=== PATIENT | female | born 1995 | race Caucasian/White ===

== ENCOUNTER 2019-04-21 17:11 | Inpatient (IN) | payer MEDICAID ==
[2019-04-21] MEDS ORDERED: ACETAMINOPHEN 325 MG TAB PO (23:30)
[2019-04-22 01:33] LABS: AMPHETAMINE/METHAMPHETAMINE Negative (NEGATIVE); BARBITURATES Negative (NEGATIVE); BENZODIAZEPINES Negative (NEGATIVE); CANNABINOIDS Negative (NEGATIVE); COCAINE Negative (NEGATIVE); OPIATES Negative (NEGATIVE)
[2019-04-22] MEDS: BETAMET NA PHOS/AC(6 MG/ML) 2 ML INJ SYG IM (01:38)
[2019-04-22] MEDS: DOCUSATE SODIUM 100 MG CAP PO (09:05)
[2019-04-22] MEDS: PRENATAL VITAMIN PO (09:05)
[2019-04-22 13:12] LABS: ADD UMIC YES; UR ASCORBIC ACID NEGATIVE (NEGATIVE); UR BACTERIA FEW /HPF (NONE SEEN); UR BILIRUBIN (Dip) NEGATIVE (NEGATIVE); UR BLOOD (Dip) 3+ mg/dL (NEGATIVE); UR CLARITY CLOUDY (CLEAR); UR COLOR YELLOW (YELLOW); UR GLUCOSE (Dip) NEGATIVE (NEGATIVE); UR KETONES (Dip) TRACE mg/dL (NEGATIVE); UR LEUKOCYTE ESTERASE (Dip) 3+ Leu/ul (NEGATIVE); UR NITRITE (Dip) NEGATIVE (NEGATIVE); UR RBC 4 /HPF (0-5); UR SPECIFIC GRAVITY (Dip) 1.008 (1.003-1.030); UR SQUAMOUS EPITHELIAL CELL FEW /HPF (FEW); UR TOTAL PROTEIN (Dip) NEGATIVE (NEGATIVE); UR UROBILINOGEN (Dip) NEGATIVE (NEGATIVE); UR WBC 28 /HPF (0-5)
[2019-04-22] MEDS: metroNIDAZOLE 500 MG TAB PO (17:00)
[2019-04-22] MEDS: ACYCLOVIR 400 MG TAB PO ×2 (17:14→20:53)
[2019-04-22 17:31] LABS: HIV 1&2 ANTIBODY NEGATIVE (NEGATIVE)
[2019-04-23] MEDS: BETAMET NA PHOS/AC(6 MG/ML) 2 ML INJ SYG IM (01:35)
[2019-04-23] MEDS: ACYCLOVIR 400 MG TAB PO ×3 (08:48→21:05)
[2019-04-23] MEDS: DOCUSATE SODIUM 100 MG CAP PO (08:48)
[2019-04-23] MEDS: PRENATAL VITAMIN PO (08:49)
[2019-04-23 12:57] LABS: HSV 2 IGG ANTIBODY <0.90 index
[2019-04-23 23:20] LABS: ADD UMIC YES; UR ASCORBIC ACID NEGATIVE (NEGATIVE); UR BACTERIA FEW /HPF (NONE SEEN); UR BILIRUBIN (Dip) NEGATIVE (NEGATIVE); UR BLOOD (Dip) 1+ mg/dL (NEGATIVE); UR CLARITY CLOUDY (CLEAR); UR COLOR STRAW (YELLOW); UR GLUCOSE (Dip) NEGATIVE (NEGATIVE); UR KETONES (Dip) NEGATIVE (NEGATIVE); UR LEUKOCYTE ESTERASE (Dip) 3+ Leu/ul (NEGATIVE); UR NITRITE (Dip) NEGATIVE (NEGATIVE); UR RBC 8 /HPF (0-5); UR SPECIFIC GRAVITY (Dip) 1.004 (1.003-1.030); UR SQUAMOUS EPITHELIAL CELL FEW /HPF (FEW); UR TOTAL PROTEIN (Dip) NEGATIVE (NEGATIVE); UR UROBILINOGEN (Dip) NEGATIVE (NEGATIVE); UR WBC 65 /HPF (0-5)
[2019-04-24] MEDS: LACTATED RINGER'S 1,000 ML IV ×3 (04:45→23:03)
[2019-04-24] MEDS: CEFAZOLIN 2 GM/50 ML (PMX) 50 ML IVPB ×3 (05:48→18:33)
[2019-04-24] MEDS: ACYCLOVIR 400 MG TAB PO ×3 (09:20→20:58)
[2019-04-24] MEDS: DOCUSATE SODIUM 100 MG CAP PO (09:20)
[2019-04-24] MEDS: PRENATAL VITAMIN PO (09:20)
[2019-04-25] MEDS: CEFAZOLIN 2 GM/50 ML (PMX) 50 ML IVPB ×4 (00:01→18:33)
[2019-04-25] MEDS: LACTATED RINGER'S 1,000 ML IV ×3 (08:16→20:40)
[2019-04-25] MEDS: PRENATAL VITAMIN PO (09:16)
[2019-04-25] MEDS: DOCUSATE SODIUM 100 MG CAP PO (09:16)
[2019-04-25] MEDS: ACYCLOVIR 400 MG TAB PO ×3 (09:16→21:16)
[2019-04-25] MEDS ORDERED: LIDOCAINE 2% (SDV) 5 ML INJ (10:39)
[2019-04-26] MEDS: CEFAZOLIN 2 GM/50 ML (PMX) 50 ML IVPB ×4 (00:27→18:00)
[2019-04-26] MEDS: LACTATED RINGER'S 1,000 ML IV ×3 (01:56→19:59)
[2019-04-26] MEDS: ACYCLOVIR 400 MG TAB PO ×3 (08:59→20:49)
[2019-04-26] MEDS: DOCUSATE SODIUM 100 MG CAP PO (08:59)
[2019-04-26] MEDS: PRENATAL VITAMIN PO (08:59)
[2019-04-26 14:59] LABS: RUPTURE FETAL MEMBRANES NEGATIVE (NEGATIVE)
[2019-04-26] MEDS: FERROUS SULFATE (EC) 325 MG TAB PO (15:10)
[2019-04-26 15:14] LABS: HEMATOCRIT 33.4 % (37.0-47.0); HEMOGLOBIN 11.1 g/dl (12.0-16.0); MEAN CORPUSCULAR HEMOGLOBIN 30.7 pg (29.0-33.0); MEAN CORPUSCULAR HGB CONC 33.2 g/dl (32.0-37.0); MEAN CORPUSCULAR VOLUME 92.3 fl (82.0-101.0); PLATELET COUNT 173 10^3/UL (140-415); RED BLOOD COUNT 3.62 10^6/ul (4.20-5.40); RED CELL DISTRIBUTION WIDTH 12.5 % (11.5-14.5)
[2019-04-26 15:14] LABS: WHITE BLOOD COUNT 11.4 10^3/ul (4.8-10.8)
[2019-04-26 15:16] LABS: ADD MAN DIFF? YES; MEAN PLATELET VOLUME 12.1 fl (7.4-10.4); POSITIVE DIFF @See below
[2019-04-26 16:27] LABS: BASOPHIL #M 0.1 10^3/ul (0.0-0.0); BASOPHILS % (M) 1 % (0-2); GIANT THROMBO% (M) 5 % (0-0); LYMPHOCYTES #M 2.9 10^3/ul (0.8-2.9); LYMPHOCYTES % (M) 26 % (15-51); MONOCYTE #M 0.4 10^3/ul (0.3-0.9); MONOCYTES % (M) 4 % (0-11); PLATELET ESTIMATE NORMAL; POIKILOCYTOSIS 1+ (0-0); REACTIVE LYMPHOCYTES #M 0.3 10^3/ul (0.0-0.0); REACTIVE LYMPHOCYTES% (M) 3 % (0-0); SEGMENTED NEUTROPHILS (M) % 66 % (39-77); SMUDGE%M 20 % (0-0)
[2019-04-27] MEDS: CEFAZOLIN 2 GM/50 ML (PMX) 50 ML IVPB ×2 (00:15→06:11)
[2019-04-27] MEDS: LACTATED RINGER'S 1,000 ML IV (04:33)
[2019-04-27] MEDS: FERROUS SULFATE (EC) 325 MG TAB PO (10:07)
[2019-04-27] MEDS: DOCUSATE SODIUM 100 MG CAP PO (10:07)
[2019-04-27] MEDS: PRENATAL VITAMIN PO (10:07)
[2019-04-27] MEDS: ACYCLOVIR 400 MG TAB PO ×3 (10:07→21:34)
[2019-04-27] MEDS ORDERED: LACTATED RINGER'S 1,000 ML IV (10:30)
[2019-04-27 13:27] LABS: ADD UMIC NO; UR ASCORBIC ACID NEGATIVE (NEGATIVE); UR BILIRUBIN (Dip) NEGATIVE (NEGATIVE); UR BLOOD (Dip) NEGATIVE (NEGATIVE); UR CLARITY CLEAR (CLEAR); UR COLOR STRAW (YELLOW); UR GLUCOSE (Dip) NEGATIVE (NEGATIVE); UR KETONES (Dip) NEGATIVE (NEGATIVE); UR LEUKOCYTE ESTERASE (Dip) NEGATIVE Leu/ul (NEGATIVE); UR NITRITE (Dip) NEGATIVE (NEGATIVE); UR SPECIFIC GRAVITY (Dip) 1.003 (1.003-1.030); UR TOTAL PROTEIN (Dip) NEGATIVE (NEGATIVE); UR UROBILINOGEN (Dip) NEGATIVE (NEGATIVE)
[2019-04-28] MEDS: DOCUSATE SODIUM 100 MG CAP PO (08:58)
[2019-04-28] MEDS: FERROUS SULFATE (EC) 325 MG TAB PO (08:58)
[2019-04-28] MEDS: PRENATAL VITAMIN PO (08:58)
[2019-04-28] MEDS: ACYCLOVIR 400 MG TAB PO ×3 (09:00→20:47)
[2019-04-29] MEDS: FERROUS SULFATE (EC) 325 MG TAB PO (08:31)
[2019-04-29] MEDS: DOCUSATE SODIUM 100 MG CAP PO (08:31)
[2019-04-29] MEDS: ACYCLOVIR 400 MG TAB PO ×3 (08:31→22:00)
[2019-04-29] MEDS: PRENATAL VITAMIN PO (08:31)
[2019-04-29 19:24] LABS: HSV1 IgM SCREEN NEGATIVE; HSV2 IgM SCREEN NEGATIVE
[2019-04-30] MEDS: PRENATAL VITAMIN PO (07:56)
[2019-04-30] MEDS: DOCUSATE SODIUM 100 MG CAP PO (07:56)
[2019-04-30] MEDS: ACYCLOVIR 400 MG TAB PO ×3 (07:56→21:03)
[2019-04-30] MEDS: FERROUS SULFATE (EC) 325 MG TAB PO (07:56)
[2019-05-01] MEDS: DOCUSATE SODIUM 100 MG CAP PO (08:58)
[2019-05-01] MEDS: ACYCLOVIR 400 MG TAB PO ×3 (08:58→20:56)
[2019-05-01] MEDS: PRENATAL VITAMIN PO (08:58)
[2019-05-01] MEDS: FERROUS SULFATE (EC) 325 MG TAB PO (08:58)
[2019-05-02] MEDS: ACYCLOVIR 400 MG TAB PO ×3 (09:24→21:33)
[2019-05-02] MEDS: DOCUSATE SODIUM 100 MG CAP PO (09:24)
[2019-05-02] MEDS: PRENATAL VITAMIN PO (09:24)
[2019-05-02] MEDS: FERROUS SULFATE (EC) 325 MG TAB PO (09:24)
[2019-05-03] MEDS: PRENATAL VITAMIN PO (09:45)
[2019-05-03] MEDS: DOCUSATE SODIUM 100 MG CAP PO (09:45)
[2019-05-03] MEDS: FERROUS SULFATE (EC) 325 MG TAB PO (09:45)
[2019-05-03 10:46] LABS: ADD MAN DIFF? NO
[2019-05-03 10:48] LABS: WHITE BLOOD COUNT 9.9 10^3/ul (4.8-10.8)
[2019-05-03 10:48] LABS: BASOPHILS % 0.2 % (0.0-2.0); EOSINOPHILS # 0.1 10^3/ul (0.0-0.5); EOSINOPHILS % 0.5 % (0.0-7.0); HEMATOCRIT 32.3 % (37.0-47.0); HEMOGLOBIN 10.9 g/dl (12.0-16.0); LYMPHOCYTES # 2.6 10^3/ul (0.8-2.9); LYMPHOCYTES % 26.1 % (15.0-51.0); MEAN CORPUSCULAR HEMOGLOBIN 31.2 pg (29.0-33.0); MEAN CORPUSCULAR HGB CONC 33.7 g/dl (32.0-37.0); MEAN CORPUSCULAR VOLUME 92.6 fl (82.0-101.0); MEAN PLATELET VOLUME 10.8 fl (7.4-10.4); MONOCYTE # 0.6 10^3/ul (0.3-0.9); MONOCYTES % 5.8 % (0.0-11.0); NEUTROPHIL # 6.6 10^3/ul (1.6-7.5); NEUTROPHILS % 66.9 % (39.0-77.0); PLATELET COUNT 166 10^3/UL (140-415); RED BLOOD COUNT 3.49 10^6/ul (4.20-5.40); RED CELL DISTRIBUTION WIDTH 12.6 % (11.5-14.5)
[2019-05-03] MEDS: ACYCLOVIR 400 MG TAB PO (15:04)
== END 2019-05-03 19:00 | disposition home or self-care (01) | DRG 833 ==
LOC: OBT 17:11 → L-D 04-22 01:28 → PP1 04-28 14:01 → L-D 05-03 10:40 → PP1 04-28 14:29 → L-D 17:22 → PP1 04-28 15:39 → OBT 21:55 → L-D 21:55
PROVIDERS: Obstetrics & Gynecology
DX: O36.5930 Maternal care for other known or suspected poor fetal growth, third trimester, not applicable or unspecified (principal); O99.013 Anemia complicating pregnancy, third trimester; Z3A.35 35 weeks gestation of pregnancy
CPT/HCPCS: 76815; 76818; 76820; 80307; 81001; 81003; 84112; 85025; 86644; 86645; 86692; 86694; 86695; 86696; 86703; 86762; 86777; 86778; 87070; 87086; 87210; 87255; 87591

== ENCOUNTER 2019-05-06 08:54 | Inpatient (IN) | payer MEDICAID ==
[2019-05-06] MEDS ORDERED: LIDOCAINE 1% (MPF) 30 ML INJ INJ (13:00)
[2019-05-06] MEDS ORDERED: IBUPROFEN 600 MG TAB PO (13:00)
[2019-05-06] MEDS ORDERED: CARBOPROST 250 MCG INJ IM (13:00)
[2019-05-06] MEDS ORDERED: OXYTOCIN 30 UNITS/LR 500 ML IV (13:00)
[2019-05-06] MEDS ORDERED: BUTORPHANOL 2 MG INJ IV (13:00)
[2019-05-06 14:26] LABS: ADD MAN DIFF? NO
[2019-05-06 14:28] LABS: BASOPHILS % 0.2 % (0.0-2.0); EOSINOPHILS % 0.5 % (0.0-7.0); HEMATOCRIT 32.9 % (37.0-47.0); HEMOGLOBIN 10.9 g/dl (12.0-16.0); LYMPHOCYTES # 2.5 10^3/ul (0.8-2.9); LYMPHOCYTES % 30.4 % (15.0-51.0); MEAN CORPUSCULAR HEMOGLOBIN 30.7 pg (29.0-33.0); MEAN CORPUSCULAR HGB CONC 33.1 g/dl (32.0-37.0); MEAN CORPUSCULAR VOLUME 92.7 fl (82.0-101.0); MEAN PLATELET VOLUME 10.8 fl (7.4-10.4); MONOCYTE # 0.5 10^3/ul (0.3-0.9); NEUTROPHIL # 5.2 10^3/ul (1.6-7.5); NEUTROPHILS % 62.5 % (39.0-77.0); PLATELET COUNT 157 10^3/UL (140-415); RED BLOOD COUNT 3.55 10^6/ul (4.20-5.40); RED CELL DISTRIBUTION WIDTH 12.8 % (11.5-14.5)
[2019-05-06 14:28] LABS: WHITE BLOOD COUNT 8.3 10^3/ul (4.8-10.8)
[2019-05-06 14:52] LABS: INR 0.87; PROTIME 11.9 Sec (11.9-14.9); PT RATIO 0.9
[2019-05-06 14:53] LABS: PARTIAL THROMBOPLASTIN TIME 26.7 Sec (23.0-35.0)
[2019-05-06 15:15] LABS: HEPATITIS B SURFACE ANTIGEN NEGATIVE (NEGATIVE)
[2019-05-06] MEDS: LACTATED RINGER'S 1,000 ML IV ×2 (15:50→20:54)
[2019-05-06] MEDS: MISOPROSTOL 50 MCG CAPSULE PO ×2 (16:00→21:39)
[2019-05-06] MEDS ORDERED: FENTAnyl 50 MCG/ML VIAL ×2 (16:17→16:58)
[2019-05-06] MEDS ORDERED: ONDANSETRON 4 MG INJ (16:26)
[2019-05-06] MEDS ORDERED: METOCLOPRAMIDE 10 MG INJ (16:26)
[2019-05-06] MEDS ORDERED: FAMOTIDINE 20 MG INJ (16:46)
[2019-05-06] MEDS ORDERED: CEFAZOLIN 1 GM INJ (16:50)
[2019-05-06] MEDS ORDERED: SUGAMMADEX SODIUM 200 MG/2 ML VIAL IV (16:50)
[2019-05-06 21:56] LABS: RAPID PLASMA REAGIN NONREACTIVE (NR)
[2019-05-07] MEDS: MISOPROSTOL 50 MCG CAPSULE PO ×6 (05:00→17:00)
[2019-05-07] MEDS: LACTATED RINGER'S 1,000 ML IV ×3 (05:35→20:58)
[2019-05-07] MEDS: ACYCLOVIR 400 MG TAB PO ×3 (09:09→20:56)
[2019-05-08] MEDS: LACTATED RINGER'S 1,000 ML IV ×2 (08:19→16:59)
[2019-05-08] MEDS: ACYCLOVIR 400 MG TAB PO ×3 (09:04→21:29)
[2019-05-09] MEDS: MISOPROSTOL 50 MCG CAPSULE PO ×4 (01:00→21:36)
[2019-05-09] MEDS: LACTATED RINGER'S 1,000 ML IV ×3 (01:01→17:19)
[2019-05-09] MEDS: ACYCLOVIR 400 MG TAB PO ×3 (09:07→17:20)
[2019-05-10] MEDS: MISOPROSTOL 50 MCG CAPSULE PO ×3 (01:39→11:22)
[2019-05-10] MEDS: LACTATED RINGER'S 1,000 ML IV ×4 (01:39→16:44)
[2019-05-10] MEDS: ACYCLOVIR 400 MG TAB PO ×3 (09:11→21:05)
[2019-05-10] MEDS: OXYTOCIN 30 UNITS/LR 500 ML IV (16:20)
[2019-05-11] MEDS: LACTATED RINGER'S 1,000 ML IV ×2 (00:12→02:04)
[2019-05-11] MEDS ORDERED: FENTAnyl 2MCG/ML-ROPIV 0.2% 100 ML (02:43)
[2019-05-11] MEDS: MISOPROSTOL 200 MCG TAB PR (03:23)
[2019-05-11] MEDS: OXYTOCIN 30 UNITS/LR 500 ML IV ×2 (03:45→03:46)
[2019-05-11] MEDS ORDERED: OXYTOCIN 30 UNITS/LR 500 ML IV ×2 (03:46→04:00)
[2019-05-11] MEDS: METHYLERGONOVINE 0.2 MG INJ IM (03:46)
[2019-05-11] MEDS ORDERED: MISOPROSTOL 200 MCG TAB PR (04:00)
[2019-05-11] MEDS ORDERED: CARBOPROST 250 MCG INJ IM (04:00)
[2019-05-11] MEDS ORDERED: HYDROCODONE/APAP (5/325) TAB PO (04:00)
[2019-05-11] MEDS ORDERED: METHYLERGONOVINE 0.2 MG INJ IM (04:00)
[2019-05-11] MEDS ORDERED: FENTAnyl 2MCG/ML-ROPIV 0.2% 100 ML BAG EPI (04:30)
[2019-05-11] MEDS ORDERED: NALOXONE (0.4 MG/ML) INJ IV (04:30)
[2019-05-11] MEDS ORDERED: ONDANSETRON 4 MG INJ IV (04:30)
[2019-05-11] MEDS ORDERED: DIPHENHYDRAMINE 50 MG INJ IV (04:30)
[2019-05-11] MEDS: MEPERIDINE 25 MG INJ IV (04:34)
[2019-05-11 06:19] LABS: ADD MAN DIFF? NO
[2019-05-11 06:24] LABS: BASOPHIL # 0.1 10^3/ul (0.0-0.1); BASOPHILS % 0.3 % (0.0-2.0); HEMATOCRIT 31.6 % (37.0-47.0); HEMOGLOBIN 10.7 g/dl (12.0-16.0); LYMPHOCYTES # 1.3 10^3/ul (0.8-2.9); LYMPHOCYTES % 7.9 % (15.0-51.0); MEAN CORPUSCULAR HEMOGLOBIN 31.3 pg (29.0-33.0); MEAN CORPUSCULAR HGB CONC 33.9 g/dl (32.0-37.0); MEAN CORPUSCULAR VOLUME 92.4 fl (82.0-101.0); MEAN PLATELET VOLUME 11.4 fl (7.4-10.4); MONOCYTE # 0.5 10^3/ul (0.3-0.9); MONOCYTES % 3.1 % (0.0-11.0); NEUTROPHIL # 14.3 10^3/ul (1.6-7.5); NEUTROPHILS % 88.1 % (39.0-77.0); PLATELET COUNT 158 10^3/UL (140-415); RED BLOOD COUNT 3.42 10^6/ul (4.20-5.40); RED CELL DISTRIBUTION WIDTH 12.3 % (11.5-14.5)
[2019-05-11 06:24] LABS: WHITE BLOOD COUNT 16.3 10^3/ul (4.8-10.8)
[2019-05-11] MEDS: LACTATED RINGER'S 1,000 ML IV* ×2 (06:42→11:46)
[2019-05-11] MEDS: IBUPROFEN 600 MG TAB PO ×3 (06:46→18:13)
[2019-05-11] MEDS: ACYCLOVIR 400 MG TAB PO ×3 (09:45→20:59)
[2019-05-11] MEDS: LANOLIN HPA 1 PKT TOP (09:45)
[2019-05-11 10:36] LABS: AMPHETAMINE/METHAMPHETAMINE NEGATIVE (NEGATIVE); BARBITURATES NEGATIVE (NEGATIVE); BENZODIAZEPINES NEGATIVE (NEGATIVE); CANNABINOIDS NEGATIVE (NEGATIVE); COCAINE NEGATIVE (NEGATIVE); OPIATES NEGATIVE (NEGATIVE)
[2019-05-12] MEDS: IBUPROFEN 600 MG TAB PO ×5 (01:15→23:45)
[2019-05-12 07:15] LABS: ADD MAN DIFF? NO
[2019-05-12 07:23] LABS: WHITE BLOOD COUNT 10.2 10^3/ul (4.8-10.8)
[2019-05-12 07:23] LABS: BASOPHILS % 0.1 % (0.0-2.0); EOSINOPHILS # 0.1 10^3/ul (0.0-0.5); EOSINOPHILS % 0.9 % (0.0-7.0); HEMATOCRIT 24.4 % (37.0-47.0); HEMOGLOBIN 8.1 g/dl (12.0-16.0); LYMPHOCYTES % 29.5 % (15.0-51.0); MEAN CORPUSCULAR HEMOGLOBIN 30.8 pg (29.0-33.0); MEAN CORPUSCULAR HGB CONC 33.2 g/dl (32.0-37.0); MEAN CORPUSCULAR VOLUME 92.8 fl (82.0-101.0); MEAN PLATELET VOLUME 10.8 fl (7.4-10.4); MONOCYTE # 0.5 10^3/ul (0.3-0.9); MONOCYTES % 4.5 % (0.0-11.0); NEUTROPHIL # 6.6 10^3/ul (1.6-7.5); NEUTROPHILS % 64.6 % (39.0-77.0); PLATELET COUNT 124 10^3/UL (140-415); RED BLOOD COUNT 2.63 10^6/ul (4.20-5.40); RED CELL DISTRIBUTION WIDTH 12.8 % (11.5-14.5)
[2019-05-12] MEDS: ACYCLOVIR 400 MG TAB PO ×3 (08:50→22:32)
[2019-05-12] MEDS: WITCH HAZEL/GLYCERIN PAD PR (12:40)
[2019-05-12] MEDS: BENZOCAINE 20% 56 ML SPRAY TOP (12:41)
[2019-05-12] MEDS: PRENATAL VITAMIN PO (13:36)
[2019-05-12] MEDS: FERROUS SULFATE (EC) 325 MG TAB PO ×2 (13:36→22:29)
[2019-05-12] MEDS: ASCORBIC ACID 500 MG TAB PO ×2 (15:08→22:32)
[2019-05-13] MEDS: IBUPROFEN 600 MG TAB PO ×2 (06:40→12:39)
[2019-05-13] MEDS: ASCORBIC ACID 500 MG TAB PO (08:49)
[2019-05-13] MEDS: PRENATAL VITAMIN PO (08:49)
[2019-05-13] MEDS: FERROUS SULFATE (EC) 325 MG TAB PO (08:49)
[2019-05-13] MEDS: ACYCLOVIR 400 MG TAB PO ×2 (08:49→12:39)
[2019-05-13] MEDS: DIPHTH/TET/ACEL PERTUSS (ADULT) 0.5 ML VIAL IM* (14:49)
== END 2019-05-13 15:51 | disposition home or self-care (01) | DRG 806 ==
LOC: OBT 08:54 → PP1 05-11 06:12 → L-D 08:55 → OBT 13:00 → L-D 12:40
PROVIDERS: Obstetrics & Gynecology
PROC: 10E0XZZ Delivery of Products of Conception, External Approach (ICD-10-PCS; principal; 2019-05-11)
PROC: 0HQ9XZZ Repair Perineum Skin, External Approach (ICD-10-PCS; 2019-05-11)
DX: O36.5930 Maternal care for other known or suspected poor fetal growth, third trimester, not applicable or unspecified (principal); O41.03X0 Oligohydramnios, third trimester, not applicable or unspecified; Z37.0 Single live birth; O99.12 Other diseases of the blood and blood-forming organs and certain disorders involving the immune mechanism complicating childbirth; D69.6 Thrombocytopenia, unspecified; O75.89 Other specified complications of labor and delivery; O70.0 First degree perineal laceration during delivery; O99.02 Anemia complicating childbirth; D64.9 Anemia, unspecified; Z3A.37 37 weeks gestation of pregnancy; Z86.19 Personal history of other infectious and parasitic diseases; Z23 Encounter for immunization
CPT/HCPCS: 62322; 76816; 76818; 76820; 80307; 85025; 85610; 85730; 86592; 86850; 86900; 86901; 87340; 90715